=== PATIENT | female | born 1965 | race Two or more races ===

== ENCOUNTER 2024-11-25 01:45 | Emergency (ER) | payer OTHER ==
[~2024-11-25] VITALS: Ht 160 cm; Wt 59.4 kg
[2024-11-25 02:03] VITALS: BP 112/66; O2SAT 95
[2024-11-25] MEDS ORDERED: EVISTA60 MG (02:06)
[2024-11-25] MEDS ORDERED: SINGULAIR4 M1 (02:06)
[2024-11-25] MEDS ORDERED: KAPSPARGO SPRIN25 MG (02:06)
[2024-11-25] MEDS ORDERED: HYOSCYAMINE SULFATE 0.125 MG TAB.SUBL SL STA (03:03)
[2024-11-25] MEDS ORDERED: FAMOTIDINE/PF 20 MG/2 ML VIAL IV PUSH STA (03:04)
[2024-11-25] MEDS ORDERED: PROMETHAZINE HCL 50 MG/ML AMPUL IM STA (03:04)
[2024-11-25] MEDS ORDERED: HYOSCYAMINE SULFATE 0.125 MG TAB.SUBL ONE (03:08)
[2024-11-25] MEDS ORDERED: PROMETHAZINE HCL 50 MG/ML AMPUL IM ONE (03:08)
[2024-11-25] MEDS ORDERED: LACTOBACILLUS ACIDOPHILUS 1 CAP CAP PO ONE ×2 (03:08→03:15)
[2024-11-25] MEDS ORDERED: FAMOTIDINE/PF 20 MG/2 ML VIAL ONE (03:08)
[2024-11-25] MEDS ORDERED: 0.9 % SODIUM CHLORIDE 1,000 ML IV ONE (03:15)
[2024-11-25 03:55] LABS: BASO % 0.5 % (0.1-1.2); HEMATOCRIT 37.2 % (34.1-44.9); HEMOGLOBIN 12.6 g/dL (11.2-15.7); LYMPH # 0.88 (1.18-3.74); LYMPH % 21.9 % (19.3-53.1); MEAN CORPUSCULAR HEMOGLOBIN 29.9 pg (25.6-32.2); MONO # 0.56 (0.24-0.82); NEUT # 2.54 (1.56-6.13); NEUT % 63.4 % (34.0-71.1); PLATELET COUNT 196 K/uL (163-369); RED BLOOD COUNT 4.21 M/uL (3.93-5.22); RED CELL DISTRIBUTION WIDTH 13.7 % (11.6-14.4)
[2024-11-25 04:42] LABS: ALBUMIN 3.4 gm/dL (3.4-5.0); BILIRUBIN TOTAL 0.43 mg/dL (0.3-1.2); CALCIUM 8.2 mg/dL (8.5-10.1); CREATININE SERUM 0.65 mg/dL (0.55-1.02); GFR 92.97; GLOBULINA 3.3 G/DL (2.4-3.5); POTASSIUM 3.58 mEq/L (3.5-5.1); TOTAL PROTEIN 6.7 gm/dL (6.4-8.2)
[2024-11-25] MEDS ORDERED: BARIUM SULFATE 450 ML ORAL.SUSP PO ONE (04:50)
[2024-11-25 07:45] LABS: URINE APPEARANCE Clear; URINE BILIRRUBIN Negative (NEGATIVE); URINE BLOOD Negative; URINE COLOR Yellow; URINE GLUCOSE Negative (NEGATIVE); URINE LEUKOCYTE Small; URINE NITRATE Positive; URINE PROTEIN Trace (NEGATIVE); URINE UROBILINOGEN 0.2 E.U./dl
[2024-11-25 07:49] LABS: URINE BACTERIA 173.7 uL (0.0-1933); URINE RBC 36.3 uL (0.0-20.8); URINE WBC 87.2 uL (0.0-23.2)
[2024-11-25 08:30] LABS: URINE KETONE 80 (NEGATIVE)
[2024-11-25 08:31] LABS: TYPE CELLS RENAL TUBULAR
[2024-11-25] MEDS ORDERED: ONDANSETRON ODT8 MG PO (11:54)
[2024-11-25] MEDS ORDERED: PEPCID AC20 MG PO (11:54)
== END 2024-11-25 13:02 | disposition home or self-care (01) ==
LOC: ER 02:45
PROVIDERS: General Practice
DX: R10.9 Unspecified abdominal pain (principal); N39.0 Urinary tract infection, site not specified; N20.0 Calculus of kidney; K57.30 Diverticulosis of large intestine without perforation or abscess without bleeding